=== PATIENT | male | born 1990 | race African-American/Black ===

== ENCOUNTER 2018-08-21 10:43 | Emergency (ER) | payer OTHER ==
[2018-08-21] MEDS: KETOROLAC 30 MG INJ IV (11:24)
[2018-08-21] MEDS: SOD CHLORIDE 0.9% 1,000 ML IV (11:25)
[2018-08-21 11:41] LABS: ADD MAN DIFF? NO; HEMATOCRIT 43.5 % (42.0-52.0); HEMOGLOBIN 14.4 g/dl (14.0-18.0); MEAN CORPUSCULAR VOLUME 94.2 fl (82.0-101.0); RED BLOOD COUNT 4.62 10^6/ul (4.70-6.10)
[2018-08-21 11:41] LABS: WHITE BLOOD COUNT 3.8 10^3/ul (4.8-10.8)
[2018-08-21 11:42] LABS: BASOPHILS % 0.3 % (0.0-2.0); LYMPHOCYTES # 1.9 10^3/ul (0.8-2.9); LYMPHOCYTES % 49.1 % (15.0-51.0); MEAN CORPUSCULAR HEMOGLOBIN 31.2 pg (29.0-33.0); MEAN CORPUSCULAR HGB CONC 33.1 g/dl (32.0-37.0); MEAN PLATELET VOLUME 9.6 fl (7.4-10.4); MONOCYTE # 0.9 10^3/ul (0.3-0.9); MONOCYTES % 23.4 % (0.0-11.0); NEUTROPHILS % 26.2 % (39.0-77.0); PLATELET COUNT 245 10^3/UL (140-415); RED CELL DISTRIBUTION WIDTH 11.1 % (11.5-14.5)
[2018-08-21 12:03] LABS: ANION GAP 17 (5-13); BLOOD UREA NITROGEN 19 mg/dl (7-20); CALCIUM 9.7 mg/dl (8.4-10.2); CARBON DIOXIDE 27 mmol/L (21-31); CHLORIDE 100 mmol/L (97-110); CREATININE 1.29 mg/dl (0.61-1.24); Estimated GFR > 60 mL/min (>60); GLUCOSE 95 mg/dl (70-220); POTASSIUM 3.9 mmol/L (3.5-5.1); SODIUM 144 mmol/L (135-144)
[2018-08-21 12:07] LABS: D-DIMER 371.87 ng/ml (<460)
[2018-08-21 12:14] LABS: TROPONIN-I < 0.012 ng/ml (0.000-0.120)
== END 2018-08-21 13:02 | disposition home or self-care (01) ==
LOC: E/R 10:43
DX: R07.9 Chest pain, unspecified (principal)
CPT/HCPCS: 36415; 71045; 80048; 84484; 85025; 85378; 93005; 96374; 99285-25

== ENCOUNTER → 2019-04-25 | Emergency (ER) | payer OTHER ==
[2019-04-25] MEDS: GLYCERIN (ADULT) SUPP PR (15:05)
[2019-04-25] MEDS: DOCUSATE SODIUM 250 MG CAP PO (15:18)
== END | disposition home or self-care (01) ==
LOC: FTE 13:01
DX: K59.01 Slow transit constipation (principal); Z21 Asymptomatic human immunodeficiency virus [HIV] infection status; Z87.891 Personal history of nicotine dependence
CPT/HCPCS: 99282; Z7502